=== PATIENT | male | born 1985 | race African-American/Black ===

== ENCOUNTER 2017-08-09 16:56 | Emergency (ER) | payer SELFPAY ==
[2017-08-09] MEDS ORDERED: Acetaminophen 500 MG TAB ONE (17:03)
== END 2017-08-09 17:43 | disposition home or self-care (01) ==
LOC: NAV ERS 16:56
DX: J11.1 Influenza due to unidentified influenza virus with other respiratory manifestations (principal)
CPT/HCPCS: 99283

== ENCOUNTER 2019-02-21 08:31 | Emergency (ER) | payer OTHER, SELFPAY ==
[2019-02-21] MEDS ORDERED: Ibuprofen 800 MG TAB ONE (08:55)
== END 2019-02-21 09:02 | disposition home or self-care (01) ==
LOC: NAV ERS 08:31
DX: S39.82XA Other specified injuries of lower back, initial encounter (principal); X50.1XXA Overexertion from prolonged static or awkward postures, initial encounter
CPT/HCPCS: 99283

== ENCOUNTER 2019-09-04 09:12 | Emergency (ER) | payer OTHER ==
[2019-09-04] MEDS ORDERED: Ibuprofen 200 MG TAB ONE (10:04)
== END 2019-09-04 10:19 | disposition home or self-care (01) ==
LOC: NAV ERS 09:12
DX: J10.1 Influenza due to other identified influenza virus with other respiratory manifestations (principal); H65.93 Unspecified nonsuppurative otitis media, bilateral
CPT/HCPCS: 87804; 99283

== ENCOUNTER 2020-06-29 09:58 | Emergency (ER) | payer OTHER, SELFPAY | END 2020-06-29 11:05 | disposition home or self-care (01) | LOC: NAV ERS 09:58 | DX: S39.012A Strain of muscle, fascia and tendon of lower back, initial encounter (principal); Z87.891 Personal history of nicotine dependence; X50.9XXA Other and unspecified overexertion or strenuous movements or postures, initial encounter | CPT/HCPCS: 99283 ==

== ENCOUNTER 2022-12-27 15:10 | Emergency (ER) | payer SELFPAY | END 2022-12-27 15:40 | disposition home or self-care (01) | LOC: NAV ERS 15:10 | DX: K04.7 Periapical abscess without sinus (principal); I10 Essential (primary) hypertension | CPT/HCPCS: 99283 ==